=== PATIENT | female | born 1990 | race Caucasian/White ===

== ENCOUNTER 2017-12-18 18:22 | Emergency (ER) | payer BC ==
[2017-12-18 18:43] VITALS: BP 116/67
--- NOTE | 2017-12-18 18:44 | UC ---
Lower Extremity/Ankle HPI - HPI Summary HPI Summary: The patient is a 27 y/o F presenting to [facility] c/o injuring right ankle within the last hour. She was jumping off a ledge approximately 3-4 feet tall when she landed incorrectly on her ankle, causing her to fall. The pain is rated 4/10 in severity. She is able to move the ankle, but there is pain associated with it. There is not any pain in her toes, dorsal aspect of the fofot, or above her ankle. She has applied ice to relieve the swelling to some relief. She had previously broken the same ankle ten years ago and has a metal plate and six screws in it. - History of Current Complaint Stated Complaint: ANKLE INJURY Time Seen by Provider: 12/18/17 18:35 Hx Obtained From: Patient Onset/Duration: Sudden Onset, Lasting Minutes, Still Present Severity Initially: Moderate Severity Currently: Moderate Pain Intensity: 4 Pain Scale Used: 0-10 Numeric Aggravating Factor(s): Other - movement Alleviating Factor(s): Rest Able to Bear Weight: Yes Feet (Multiple View): 1 - pain and swelling in right ankle - Allergies/Home Medications Allergies/Adverse Reactions: Allergies Allergy/AdvReac Type Severity Reaction Status Date / Time cefprozil [From Cefzil] Allergy Unknown Verified 12/18/17 18:43 Reaction Details sulfamethoxazole Allergy Unknown Verified 12/18/17 18:43 [From Bactrim] Reaction Details trimethoprim [From Bactrim] Allergy Unknown Verified 12/18/17 18:43 Reaction Details Home Medications: Home Medications NK [No Home Medications Reported] 12/18/17 [History Confirmed 12/18/17] PMH/Surg Hx/FS Hx/Imm Hx Other Endocrine History: NEGATIVE: diabetes Other Respiratory History: NEGATIVE: asthma - Surgical History Surgical History: Yes Surgery Procedure, Year, and Place: right ankle surgery with placement of metal plate and six screws in 2007 - Family History Known Family History: Negative: Hypertension - Social History Alcohol Use: Occasionally Substance Use Type: None Smoking Status (MU): Never Smoked Tobacco Review of Systems Motor: Other - NEGATIVE: decreased ROM Musculoskeletal: Other: - POSITIVE: pain and swelling in right ankle; NEGATIVE: pain in toes, dorsal foot, area above ankle All Other Systems Reviewed And Are Negative: Yes Physical Exam - Summary Physical Exam Summary: General: well-appearing, no pain distress Skin: warm, color reflects adequate perfusion, dry Head: normal Eyes: EOMI, KACY ENT: normal Neck: supple, nontender Respiratory: CTA, breath sounds present Cardiovascular: RRR Abdomen: soft, nontender Bowel: present Musculoskeletal: strength/ROM intact, Swelling of distal lateral malleolus on the right ankle Neurological: sensory/motor intact, A&O x3 Psychological: affect/mood appropriate Triage Information Reviewed: Yes Vital Signs Reviewed: Yes Diagnostics - Radiology Right Ankle XR Xray Interpretation: No Acute Changes - Postoperative change. Soft tissue swelling. No acute findings. [facility] physician has reviewed this report. Radiology Interpretation Completed By: Radiologist Lower Extremity Course/Dx - Course Course Of Treatment: Medications reviewed. Allergies noted. DISCUSSED X-RAY RESULTS WITH THE PATIENT. F/U PMD IF NOT IMPROVED; RECHECK SOONER IF WORSE. - Differential Dx/Diagnosis Provider Diagnoses: RIGHT ANKLE SPRAIN Discharge - Sign-Out/Discharge Documenting (check all that apply): Patient Departure - Patient will be discharged home. - Discharge Plan Condition: Stable Disposition: HOME Patient Education Materials: Ankle Sprain (ED) Referrals: [facility] [place] [facility] [Outside] Additional Instructions: FOLLOW UP WITH YOUR DOCTOR IF NOT COMPLETELY IMPROVED. GET RECHECKED FOR ANY WORSENING OF YOUR CONDITION OR QUESTIONS OR CONCERNS. - Billing Disposition and Condition Condition: STABLE Disposition: Home Attestation Statement Scribe Attestation: This is arnulfo Hu documenting for attending Dr. Marcus Barajas MD. User Type: Provider with Scribe Provider Attestation: The documentation recorded by the polinaibugo accurately reflects the service I personally performed and the decisions made by me.
--- NOTE | 2017-12-18 19:01 | RAD ---
INDICATION: Right ankle pain. History of remote fracture COMPARISON: April 17, 2007 TECHNIQUE: AP, lateral, and oblique views were obtained. FINDINGS: There are no acute bony findings. There is ORIF of a distal fibular fracture. There is no evidence of hardware failure. The ankle mortise is intact. There is mild diffuse soft tissue swelling. IMPRESSION: POSTOPERATIVE CHANGE. SOFT TISSUE SWELLING. NO ACUTE FINDINGS
== END 2017-12-18 19:29 | disposition home or self-care (01) ==
LOC: UCEAST 18:22
DX: S93.401A Sprain of unspecified ligament of right ankle, initial encounter (principal); X50.1XXA Overexertion from prolonged static or awkward postures, initial encounter; Y93.39 Activity, other involving climbing, rappelling and jumping off; Y92.9 Unspecified place or not applicable; Z88.1 Allergy status to other antibiotic agents; Z88.2 Allergy status to sulfonamides
CPT/HCPCS: 99202; G0463